=== PATIENT | female | born 1990 ===

== ENCOUNTER 2016-12-28 10:40 | Emergency (ER) | payer MEDICAID ==
[2016-12-28 10:48] VITALS: BMI 23.2
[2016-12-28 10:57] VITALS: O2SAT 100
[2016-12-28 11:28] LABS: URINE BILIRUBIN NEGATIVE (NEGATIVE); URINE BLOOD 1+ (NEGATIVE); URINE COLOR Yellow (YELLOW); URINE GLUCOSE (UA) NORMAL (Normal); URINE KETONE NEGATIVE (NEGATIVE); URINE LEUKOCYTE ESTERASE NEG Leu/uL (Negative); URINE PROTEIN NEGATIVE (NEGATIVE); URINE UROBILINOGEN NORMAL mg/dL (0.2-1.0); WBC URINE < 1 /hpf (0-5)
[2016-12-28 11:33] LABS: BASO % 0.3 % (0.0-2.0); EOS % 0.6 % (0.0-4.0); HEMATOCRIT 36.1 % (34.0-47.0); LYMPH # 1.6 K/uL (1.0-4.3); LYMPH % 28.1 % (20.0-40.0); MEAN CELL VOLUME 83.3 fL (81.0-99.0); MEAN CORPUSCULAR HEMOGLOBIN 27.7 pg (27.0-31.0); MEAN CORPUSCULAR HGB CONC 33.3 g/dL (33.0-37.0); MONO # 0.4 K/uL (0.0-0.8); RED CELL DISTRIBUTION WIDTH 14.8 % (11.5-14.5); WHITE BLOOD COUNT 5.7 K/uL (4.8-10.8)
[2016-12-28 11:35] LABS: RBC URINE 3 /hpf (0-3); URINE BACTERIA RARE (<OCC)
[2016-12-28 11:41] LABS: CHLORIDE 99 mmol/L (98-107); POTASSIUM 3.6 mmol/L (3.6-5.2); SODIUM 131 mmol/L (132-148)
[2016-12-28 11:43] LABS: ALB/GLOB RATIO 1.2 (1.0-2.1); BILIRUBIN,TOTAL 0.5 mg/dL (0.2-1.3); CARBON DIOXIDE 23 mmol/L (22-30); GFR AFRICAN-AMERICAN > 60; TOTAL PROTEIN 7.4 g/dL (6.3-8.3)
[2016-12-28 11:44] LABS: ALKALINE PHOSPHATASE 40 U/L (38-126); ALT/SGPT 35 U/L (9-52); AST/SGOT 18 U/L (14-36); BLOOD UREA NITROGEN 8 mg/dL (7-17); GLUCOSE,RANDOM 77 mg/dL (65-105)
--- NOTE | 2016-12-28 13:40 | US ---
PROCEDURE: OB Pelvic Ultrasound HISTORY: vag bleed, preg ; last menstrual period is dated 10/05/2016 suggesting an estimated gestational age of 12 weeks 0 days. COMPARISON: None available. FINDINGS: UTERUS: A single viable intrauterine gestation in is identified within the endometrial cavity with mean crown-rump length measurement of 6.4 cm corresponding to 12 weeks 5 days average ultrasonic age. Yolk sac and amniotic membrane are not identified this time. cardiac activity recorded 161 beats per minute and the placenta appears anterior/fundal without placental abruption or previa identified. Date of delivery (Ultrasound estimated) : 07/07/2017 No definitive myometrial lesion is identified in the cervix is also unremarkable appearing grossly. CERVIX: Long and closed. No cervical abnormality seen. RIGHT OVARY: Not identified. No suspicious right adnexal mass is appreciable. LEFT OVARY: Not identified. No suspicious left adnexal mass is appreciable. FREE FLUID: None. OTHER FINDINGS: None. IMPRESSION: A single viable intrauterine gestation is identified with an average ultrasonic age of 12 weeks 5 days which agrees with menstrual dates of 12 weeks 0 days as discussed above. No placental abruption or previa. Clearly card cavity measures 161 beats per minute. No suspicious adnexal findings are identified however the ovaries are not seen at either side. Clinical and potential ultrasound follow-up are advised.
--- NOTE | 2016-12-28 14:09 | C.PDOC ---
History Of Present Illness 26 year old female presents to the ED with complaints of pelvic abdominal pain and vaginal bleeding for one day. As per patient, she is three months , . She denies dysuria, back pain, diarrhea, nausea, or vomiting. Time Seen by Provider: 12/28/16 10:55 Chief Complaint (Nursing): Female Genitourinary History Per: Patient History/Exam Limitations: no limitations Onset/Duration Of Symptoms: Days (1 day ) Current Symptoms Are (Timing): Still Present Quality Of Discomfort: "Pain" Associated Symptoms: denies: Fever, Chills, Nausea, Vomiting, Back Pain Alleviating Factors: None Recent travel outside of the [place]: No Additional History Per: Prior Records Abnormal Vaginal Bleeding: Yes : 1 Para: 0 Past Medical History Reviewed: Historical Data, Nursing Documentation, Vital Signs Vital Signs: Last Vital Signs Temp 98.0 F 12/28/16 14:19 Pulse 87 12/28/16 14:19 Resp 17 12/28/16 14:19 BP 105/69 12/28/16 14:19 Pulse Ox 100 12/28/16 15:47 Family History: States: Unknown Family Hx - Social History Hx Alcohol Use: No Hx Substance Use: No - Immunization History Hx Tetanus Toxoid Vaccination: No Hx Influenza Vaccination: No Hx Pneumococcal Vaccination: No Review Of Systems Constitutional: Negative for: Fever, Chills Cardiovascular: Negative for: Chest Pain Respiratory: Negative for: Shortness of Breath Gastrointestinal: Positive for: Abdominal Pain. Negative for: Nausea, Vomiting , Diarrhea Genitourinary: Positive for: Vaginal Bleeding. Negative for: Dysuria Physical Exam - Physical Exam Appears: Non-toxic, No Acute Distress Skin: Warm, Dry Head: Atraumatic, Normacephalic Eye(s): bilateral: Normal Inspection, PERRL, EOMI Oral Mucosa: Moist Neck: Supple Chest: Symmetrical, No Deformity Cardiovascular: Rhythm Regular, No Murmur Respiratory: No Rales, No Rhonchi, No Wheezing, Other (Cleat to auscultation bilaterally ) Gastrointestinal/Abdominal: Soft, Tenderness (mild suprapubic tenderness ), No Distention, No Guarding, No Rebound Extremity: Normal ROM, No Tenderness Neurological/Psych: Oriented x3 ED Course And Treatment - Laboratory Results Result Diagrams: 12/28/16 11:29 10/17/17 11:29 O2 Sat by Pulse Oximetry: 100 (RA) - CT Scan/US OB Pelvic Ultrasound Other Rad Studies (CT/US): Read By Radiologist, Radiology Report Reviewed CT/US Interpretation: FINDINGS: UTERUS: A single viable intrauterine gestation in is identified within the endometrial cavity with mean crown-rump length measurement of 6.4 cm corresponding to 12 weeks 5 days average ultrasonic age. Yolk sac and amniotic membrane are not identified this time. cardiac activity recorded 161 beats per minute and the placenta appears anterior/fundal without placental abruption or previa identified. Date of delivery (Ultrasound estimated) : 07/07/2017. No definitive myometrial lesion is identified in the cervix is also unremarkable appearing grossly. CERVIX: Long and closed. No cervical abnormality seen. RIGHT OVARY: Not identified. No suspicious right adnexal mass is appreciable. LEFT OVARY: Not identified. No suspicious left adnexal mass is appreciable. FREE FLUID: None. OTHER FINDINGS: None. IMPRESSION: A single viable intrauterine gestation is identified with an average ultrasonic age of 12 weeks 5 days which agrees with menstrual dates of 12 weeks 0 days as discussed above. No placental abruption or previa. Clearly card cavity measures 161 beats per minute. No suspicious adnexal findings are identified however the ovaries are not seen at either side. Clinical and potential ultrasound follow-up are advised. Medical Decision Making Medical Decision Making: On re-exam, the patient reports improvement of symptoms. Abdomen is soft, non- tender and patient is tolerating PO well. Lungs are CTA, heart is RRR. Ambulatory in the ED with steady gait. Patient was instructed to return to the ED for repeat beta as there is still risk for ectopic/. Follow up with the medical doctor within 1-2 days. Return if worsened. Disposition - Disposition Referrals: [facility] [Outside] Disposition: HOME/ ROUTINE Disposition Time: 14:10 Condition: GOOD Additional Instructions: Follow up with the medical doctor within 1-2 days. Return if worsened Instructions: Threatened Miscarriage (ED) Forms: [employer] (Polish) Print Language: [place] - Clinical Impression Clinical Impression: Threatened - PA / [employer] / Resident Statement MD/DO has reviewed & agrees with the documentation as recorded. - Scribe Statement The provider has reviewed the documentation as recorded by the Scribe Jaye Boyce All medical record entries made by the Scribe were at my direction and personally dictated by me. I have reviewed the chart and agree that the record accurately reflects my personal performance of the history, physical exam, medical decision making, and the department course for this patient. I have also personally directed, reviewed, and agree with the discharge instructions and disposition.
[2016-12-28 14:20] VITALS: BP 105/69; PULSE 87; RESP 17; TEMP 98
== END 2016-12-28 14:24 | disposition home or self-care (01) ==
LOC: C.ER 10:40
DX: O20.0 Threatened abortion (principal); Z3A.12 12 weeks gestation of pregnancy